=== PATIENT | female | born 1965 ===

== ENCOUNTER 2017-02-16 06:27 | Emergency (ER) | payer OTHER ==
[2017-02-16] MEDS ORDERED: Morphine 4 MG/ML VIAL ONE ×2 (07:19→08:40)
[2017-02-16 07:57] LABS: BASO # 0.1 K/uL (0.0-0.2); BASO % 0.7 % (0.0-2.0); EOS # 0.2 K/uL (0.0-0.7); EOS % 1.7 % (0.0-4.0); HEMATOCRIT 38.8 % (34.0-47.0); LYMPH # 1.6 K/uL (1.0-4.3); LYMPH % 16.6 % (20.0-40.0); MEAN CELL VOLUME 88.2 fL (81.0-99.0); MEAN CORPUSCULAR HGB CONC 32.9 g/dL (33.0-37.0); MEAN PLATELET VOLUME 8.1 fL (7.2-11.7); MONO # 0.9 K/uL (0.0-0.8); MONO % 9.1 % (0.0-10.0); RED CELL DISTRIBUTION WIDTH 12.9 % (11.5-14.5); WHITE BLOOD COUNT 9.7 K/uL (4.8-10.8)
[2017-02-16 08:08] LABS: CHLORIDE 100 mmol/L (98-107); POTASSIUM 3.8 mmol/L (3.6-5.2); SODIUM 136 mmol/L (132-148)
[2017-02-16 08:10] LABS: GFR AFRICAN-AMERICAN > 60
[2017-02-16 08:11] LABS: ALB/GLOB RATIO 1.2 (1.0-2.1); ALKALINE PHOSPHATASE 53 U/L (38-126); ALT/SGPT 24 U/L (9-52); AST/SGOT 27 U/L (14-36); BILIRUBIN,TOTAL 0.7 mg/dL (0.2-1.3); BLOOD UREA NITROGEN 9 mg/dL (7-17); CARBON DIOXIDE 26 mmol/L (22-30); GLUCOSE,RANDOM 113 mg/dL (65-105); TOTAL PROTEIN 6.8 g/dL (6.3-8.3)
[2017-02-16 08:12] LABS: CALCIUM 8.5 mg/dl (8.6-10.4)
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
--- NOTE | 2017-02-16 09:18 | CP.PCM.HP ---
Present on Admission - Present on Admission Any Indicators Present on Admission: No History of DVT/PE: No History of Uncontrolled Diabetes: No Urinary Catheter: No Decubitus Ulcer Present: No History Surgical Site Infection Following: Orthopedic Procedures Past Patient History - Past Social History Smoking Status: Never Smoked - ENDOCRINE/METABOLIC Hx Hypothyroidism: Yes - PSYCHIATRIC Hx Substance Use: No - SURGICAL HISTORY Hx Thyroidectomy: Yes - ANESTHESIA Hx Anesthesia: Yes Hx Anesthesia Reactions: No Meds Allergies/Adverse Reactions: Allergies Allergy/AdvReac Type Severity Reaction Status Date / Time No Known Allergies Allergy Verified 02/16/17 06:36 Physical Exam - Constitutional Appears: Non-toxic, No Acute Distress - Eye Exam Eye Exam: Normal appearance Pupil Exam: NORMAL ACCOMODATION - Respiratory Exam Respiratory Exam: Clear to Auscultation Bilateral. absent: Rales, Rhonchi, Wheezes - Cardiovascular Exam Cardiovascular Exam: REGULAR RHYTHM, RRR, +S1, +S2. absent: Gallop, Rubs - GI/Abdominal Exam GI & Abdominal Exam: Normal Bowel Sounds, Soft. absent: Tenderness - Extremities Exam Extremities exam: Positive for: normal capillary refill, tenderness. Negative for: normal inspection Additional comments: left arm is in a sling, pulse 2+ radial and ulnar. - Back Exam Back exam: absent: CVA tenderness (L), CVA tenderness (R) - Neurological Exam Additional comments: no loss of sensation though patient reports numbness of her left hand. - Psychiatric Exam Psychiatric exam: Anxious - Skin Skin Exam: Normal Color, Warm Results - Vital Signs Recent Vital Signs: Last Vital Signs Temp 97.6 F 02/16/17 06:33 Pulse 89 02/16/17 06:33 Resp 18 02/16/17 06:33 BP 151/96 H 02/16/17 06:33 Pulse Ox 99 02/16/17 08:52 - Labs Result Diagrams: 02/16/17 07:52 02/16/17 07:52 Assessment & Plan (1) Fracture dislocation of left shoulder joint Assessment and Plan: Patient admitted to regular floor/inpatient X:ray shows a anterior dislocated humural head with a distal fracture. Dr. Coreas consulted, Will keep patient NPO for now, EKG, CXR for surgical clearance, lab work in the ED is wnl. Morphine 2mg Q4H for severe pain, Toradol 30mg Q6H for moderate pain, pepcid 20mg Q12H IV. Status: Acute (2) Prophylactic measure Status: Acute
[2017-02-16] MEDS ORDERED: Sodium Chloride 0.9% 1,000 ML IV SCH (09:45)
--- NOTE | 2017-02-16 10:09 | CT ---
Indication: Shoulder fraction and dislocation Noncontrast CT of the left shoulder Comparison: Left shoulder x-ray performed earlier the same day. Technique: Noncontrast axial images of the left shoulder. Sagittal coronal reformatted images were generated and reviewed. This CT exam was performed using 1 or more of the falling dose reduction techniques: Automated exposure control, adjustment of the MAA and/or kV according to patient size, and/or use of iterative reconstruction technique. Total exam DLP: 412.21 Findings: Anterior inferior dislocation of the humeral head. Comminuted fracture of the greater tuberosity. Remainder the visualized osseous structures appear intact. No evidence of glenoid fracture. Lipohemarthrosis is evident. No evidence of radiopaque foreign body. The included left ribs and clavicle appear intact. Visualized lung field appears clear. Impression: Anterior inferior dislocation of the humeral head. Comminuted fracture of the greater tuberosity. Lipohemarthrosis evident.
[2017-02-16] MEDS ORDERED: Sodium Chloride 0.9% 1,000 ML ONE (10:11)
--- NOTE | 2017-02-16 11:11 | RAD ---
HISTORY: surgery COMPARISON: None available. TECHNIQUE: Chest, one view. FINDINGS: LUNGS: No focal consolidation. Please note that chest x-ray has limited sensitivity for the detection of pulmonary masses. PLEURA: No significant pleural effusion identified. No definite pneumothorax . CARDIOVASCULAR: The cardiomediastinal silhouette appears within normal limits of size. OSSEOUS STRUCTURES: Anterior inferior dislocation of the left humeral head. Comminuted displaced fracture of the humeral head/ greater tuberosity. VISUALIZED UPPER ABDOMEN: Unremarkable. OTHER FINDINGS: None. IMPRESSION: No focal consolidation, significant pleural effusion, or definite pneumothorax identified. Anterior inferior dislocation of the left humeral head. Comminuted displaced fracture of the humeral head/ greater tuberosity.
[2017-02-16] MEDS ORDERED: Propofol 10 mg/ml Inj (20 ML) IV ONE (11:41)
[2017-02-16] MEDS ORDERED: Propofol 10 mg/ml Inj (20 ML) ONE (11:45)
--- NOTE | 2017-02-16 12:38 | RAD ---
PROCEDURE: Radiographs of the Left Shoulder HISTORY: Post reduction COMPARISON: Left shoulder radiographs and CT of the left shoulder performed earlier the same day. FINDINGS: Postreduction views demonstrates humeral head has been located. Comminuted humeral head fracture re-identified. The remainder the visualized osseous structures appear intact. Soft tissue swelling. IMPRESSION: Postreduction views demonstrate humeral head in satisfactory alignment. Comminuted humeral head fracture re-identified. Soft tissue swelling.
[2017-02-16 13:07] VITALS: BP 111/66; PULSE 79; RESP 20; TEMP 97.7; O2SAT 99
== END 2017-02-16 13:15 | disposition home or self-care (01) ==
LOC: C.ER 06:27 → SUPCPDRO 06:27 → UNDOADMIN 08:52 → C.9E 08:52 → C.6T 09:17 → C.9E 09:17
DX: S42.252A Displaced fracture of greater tuberosity of left humerus, initial encounter for closed fracture (principal); V18.0XXA Pedal cycle driver injured in noncollision transport accident in nontraffic accident, initial encounter
CPT/HCPCS: 23665; 71010; 73030; 73200; 80053; 85025; 85610; 85730; 96374; 96375; 96376; 99285; J2270; J7040